=== PATIENT | male | born 1990 | race Caucasian/White ===

== ENCOUNTER 2017-12-15 17:58 | Inpatient (IN) | payer SELFPAY ==
[~2017-12-15] VITALS: Ht 165.1 cm; Wt 71.2 kg
[2017-12-15] MEDS ORDERED: SODIUM CHLORIDE 0.9% 1,000 ML IV ONE ×2 (21:59→22:45)
[2017-12-15 22:00] LABS: BASOPHILS % 1.3 % (0.0-2.0); EOSINOPHILS % 3.2 % (0.0-5.0); LYMPHOCYTES % 24.2 % (20.0-50.0); MEAN CORPUSCULAR HEMOGLOBIN 29.5 pg (28.0-32.0); MEAN CORPUSCULAR VOLUME 87.2 fL (80.0-94.0); MEAN PLATELET VOLUME 7.9 fl (7.4-10.4); MONOCYTES % 5.9 % (2.0-8.0); NEUTROPHILS % 65.4 % (40.0-76.0); PLATELET 201 x1000/uL (130-400); RED BLOOD CELL COUNT 2.34 mill/uL (4.7-6.1); RED CELL DISTRIBUTION WIDTH 13.8 % (11.6-14.6)
[2017-12-15] MEDS ORDERED: ONDANSETRON HCL 4MG/2ML VIAL IV ONE (22:00)
[2017-12-15 22:01] LABS: HEMATOCRIT. 20.4 % (42.0-52.0); HEMOGLOBIN. 6.9 g/dL (14.0-18.0)
[2017-12-15 22:04] LABS: CHLORIDE 110 mEq/L (98-107)
[2017-12-15 22:06] LABS: INR 1.1; PARTIAL THROMBOPLASTIN TIME 27.9 sec (23.4-31.0); PROTHROMBIN TIME 11.9 sec (9.4-11.6)
[2017-12-15] MEDS ORDERED: FUROSEMIDE 40MG/4ML VIAL IVP ONE (23:30)
[2017-12-16] VITALS (25 sets, daily range): BP systolic 153–223; BP diastolic 81–147
[2017-12-16] MEDS: CLONIDINE 0.1MG TABLET PO PRN ×3 (05:13→17:16)
[2017-12-16] MEDS ORDERED: NIFEDIPINE XL 30MG TAB PO SCH (09:00)
[2017-12-16 10:56] LABS: BASOPHILS % 1.8 % (0.0-2.0); EOSINOPHILS % 3.3 % (0.0-5.0); LYMPHOCYTES % 22.8 % (20.0-50.0); MEAN CORPUSCULAR HEMOGLOBIN 29.8 pg (28.0-32.0); MEAN CORPUSCULAR VOLUME 86.9 fL (80.0-94.0); MEAN PLATELET VOLUME 7.9 fl (7.4-10.4); MONOCYTES % 7.2 % (2.0-8.0); NEUTROPHILS % 64.9 % (40.0-76.0); PLATELET 169 x1000/uL (130-400); RED BLOOD CELL COUNT 1.97 mill/uL (4.7-6.1); RED CELL DISTRIBUTION WIDTH 13.7 % (11.6-14.6)
[2017-12-16 11:12] LABS: HEMATOCRIT. 17.1 % (42.0-52.0)
[2017-12-16 11:13] LABS: HEMOGLOBIN. 5.9 g/dL (14.0-18.0)
[2017-12-16] MEDS: HYDRALAZINE 20MG/ML VIAL IV PRN ×2 (11:51→17:47)
[2017-12-16 15:25] LABS: HEMATOCRIT 19.7 % (42.0-52.0); HEMOGLOBIN 6.7 g/dL (14.0-18.0)
[2017-12-16 16:06] LABS: CLARITY URINE CLEAR (CLEAR); COLOR URINE YELLOW (YELLOW); KETONES URINE NEGATIVE (NEGATIVE); LEUKOCYTE ESTERASE URINE NEGATIVE (NEGATIVE); NITRITE URINE NEGATIVE (NEGATIVE); OCCULT BLOOD URINE NEGATIVE (NEGATIVE); PROTEIN URINE 3+ (NEGATIVE); SPECIFIC GRAVITY URINE 1.013 (1.005-1.030); UROBILINOGEN URINE 0.2 E.U./dL (0.2-1.0)
[2017-12-16] MEDS: NIFEDIPINE XL 60MG TAB PO SCH ×2 (18:26→22:06)
[2017-12-16] MEDS ORDERED: HYDRALAZINE 20MG/ML VIAL IV PRN (18:30)
[2017-12-16] MEDS ORDERED: ACETAMINOPHEN 325MG TABLET PO PRN (18:45)
[2017-12-16 22:33] LABS: TOTAL IRON BINDING CAPACITY 196 ug/dL (250-450)
[2017-12-17] VITALS (12 sets, daily range): BP systolic 125–170; BP diastolic 67–98
[2017-12-17 06:46] LABS: BASOPHILS % 0.9 % (0.0-2.0); EOSINOPHILS % 4.7 % (0.0-5.0); HEMATOCRIT. 28.4 % (42.0-52.0); HEMOGLOBIN. 9.8 g/dL (14.0-18.0); LYMPHOCYTES % 22.7 % (20.0-50.0); MEAN PLATELET VOLUME 7.9 fl (7.4-10.4); NEUTROPHILS % 61.7 % (40.0-76.0); PLATELET 179 x1000/uL (130-400); RED BLOOD CELL COUNT 3.26 mill/uL (4.7-6.1)
[2017-12-17 07:06] LABS: HEPATITIS B SURFACE ANTIGEN NEGATIVE
[2017-12-17 07:34] LABS: HEPATITIS B CORE AB IGM NEGATIVE
[2017-12-17 07:36] LABS: HEPATITIS A AB IGM NEGATIVE (NEGATIVE)
[2017-12-17 08:34] LABS: PHOSPHORUS 6.4 mg/dL (2.5-4.9)
[2017-12-17] MEDS: NIFEDIPINE XL 60MG TAB PO SCH ×2 (08:36→20:51)
[2017-12-17] MEDS: HYDROCODONE/ACETAMINOPHEN 5/325MG TABLET PO PRN (08:37)
[2017-12-17] MEDS ORDERED: DOCUSATE SODIUM 250MG CAPSULE PO PRN (15:15)
[2017-12-18] VITALS (14 sets, daily range): BP systolic 142–179; BP diastolic 70–117
[2017-12-18 06:25] LABS: BASOPHILS % 1.1 % (0.0-2.0); EOSINOPHILS % 4.7 % (0.0-5.0); HEMATOCRIT. 27.8 % (42.0-52.0); HEMOGLOBIN. 9.7 g/dL (14.0-18.0); LYMPHOCYTES % 25.1 % (20.0-50.0); MEAN CORPUSCULAR HEMOGLOBIN 30.4 pg (28.0-32.0); MEAN PLATELET VOLUME 7.8 fl (7.4-10.4); MONOCYTES % 8.3 % (2.0-8.0); NEUTROPHILS % 60.8 % (40.0-76.0); PLATELET 172 x1000/uL (130-400); RED BLOOD CELL COUNT 3.19 mill/uL (4.7-6.1); RED CELL DISTRIBUTION WIDTH 13.7 % (11.6-14.6)
[2017-12-18] MEDS: NIFEDIPINE XL 60MG TAB PO SCH ×2 (08:39→20:18)
[2017-12-18] MEDS: CLONIDINE 0.1MG TABLET PO PRN ×2 (14:58→22:18)
[2017-12-19] VITALS (12 sets, daily range): BP systolic 111–150; BP diastolic 62–103
[2017-12-19 06:37] LABS: BASOPHILS % 1.1 % (0.0-2.0); EOSINOPHILS % 4.9 % (0.0-5.0); HEMATOCRIT. 28.3 % (42.0-52.0); HEMOGLOBIN. 9.8 g/dL (14.0-18.0); MEAN CORPUSCULAR HEMOGLOBIN 30.2 pg (28.0-32.0); MEAN CORPUSCULAR VOLUME 87.6 fL (80.0-94.0); MEAN PLATELET VOLUME 7.6 fl (7.4-10.4); MONOCYTES % 8.6 % (2.0-8.0); NEUTROPHILS % 55.4 % (40.0-76.0); PLATELET 181 x1000/uL (130-400); RED BLOOD CELL COUNT 3.23 mill/uL (4.7-6.1); RED CELL DISTRIBUTION WIDTH 14.1 % (11.6-14.6)
[2017-12-19] MEDS: NIFEDIPINE XL 60MG TAB PO SCH ×2 (09:00→20:42)
[2017-12-19] MEDS: LOSARTAN POTASSIUM 25 MG TABLET PO SCH ×2 (14:00→17:56)
[2017-12-19] MEDS: EPOETIN ALFA 10000UNITS/ML VIAL SUBCUT SCH (20:42)
[2017-12-20] VITALS (25 sets, daily range): BP systolic 132–156; BP diastolic 73–106
[2017-12-20] MEDS: HYDROCODONE/ACETAMINOPHEN 5/325MG TABLET PO PRN (01:58)
[2017-12-20 06:38] LABS: EOSINOPHILS % 4.9 % (0.0-5.0); HEMATOCRIT. 28.6 % (42.0-52.0); HEMOGLOBIN. 9.9 g/dL (14.0-18.0); LYMPHOCYTES % 28.8 % (20.0-50.0); MEAN CORPUSCULAR HEMOGLOBIN 29.9 pg (28.0-32.0); MEAN CORPUSCULAR VOLUME 86.6 fL (80.0-94.0); MEAN PLATELET VOLUME 7.6 fl (7.4-10.4); MONOCYTES % 8.5 % (2.0-8.0); NEUTROPHILS % 56.8 % (40.0-76.0); PLATELET 176 x1000/uL (130-400); RED CELL DISTRIBUTION WIDTH 13.8 % (11.6-14.6)
[2017-12-20] MEDS: LOSARTAN POTASSIUM 25 MG TABLET PO SCH (10:03)
[2017-12-20] MEDS: NIFEDIPINE XL 60MG TAB PO SCH ×2 (10:03→20:33)
[2017-12-20] MEDS ORDERED: ZOLPIDEM TARTRATE 5MG TABLET PO PRN (21:00)
[2017-12-21] VITALS (7 sets, daily range): BP systolic 122–144; BP diastolic 70–83
[2017-12-21 06:16] LABS: BASOPHILS % 1.3 % (0.0-2.0); EOSINOPHILS % 4.1 % (0.0-5.0); HEMATOCRIT. 29.7 % (42.0-52.0); HEMOGLOBIN. 10.2 g/dL (14.0-18.0); LYMPHOCYTES % 31.4 % (20.0-50.0); MEAN CORPUSCULAR HEMOGLOBIN 30.1 pg (28.0-32.0); MEAN CORPUSCULAR VOLUME 87.4 fL (80.0-94.0); MEAN PLATELET VOLUME 7.5 fl (7.4-10.4); MONOCYTES % 9.8 % (2.0-8.0); NEUTROPHILS % 53.4 % (40.0-76.0); PLATELET 177 x1000/uL (130-400); RED CELL DISTRIBUTION WIDTH 13.7 % (11.6-14.6)
[2017-12-21] MEDS: NIFEDIPINE XL 60MG TAB PO SCH ×2 (09:34→21:01)
[2017-12-21] MEDS: LOSARTAN POTASSIUM 25 MG TABLET PO SCH (09:35)
[2017-12-22 07:15] LABS: BASOPHILS % 1.1 % (0.0-2.0); EOSINOPHILS % 4.1 % (0.0-5.0); HEMATOCRIT. 28.3 % (42.0-52.0); HEMOGLOBIN. 9.6 g/dL (14.0-18.0); LYMPHOCYTES % 30.5 % (20.0-50.0); MEAN CORPUSCULAR HEMOGLOBIN 29.4 pg (28.0-32.0); MEAN CORPUSCULAR VOLUME 86.9 fL (80.0-94.0); MEAN PLATELET VOLUME 7.8 fl (7.4-10.4); MONOCYTES % 9.2 % (2.0-8.0); NEUTROPHILS % 55.1 % (40.0-76.0); PLATELET 171 x1000/uL (130-400); RED BLOOD CELL COUNT 3.26 mill/uL (4.7-6.1); RED CELL DISTRIBUTION WIDTH 13.6 % (11.6-14.6)
[2017-12-22 08:00] VITALS: BP 136/79
[2017-12-22] MEDS: LOSARTAN POTASSIUM 25 MG TABLET PO SCH (09:05)
[2017-12-22] MEDS: NIFEDIPINE XL 60MG TAB PO SCH ×2 (09:05→21:15)
[2017-12-22 12:00] VITALS: BP 138/75
[2017-12-22 16:00] VITALS: BP 125/64
[2017-12-22 20:00] VITALS: BP 145/91
[2017-12-22] MEDS: EPOETIN ALFA 10000UNITS/ML VIAL SUBCUT SCH (21:15)
[2017-12-22 22:00] VITALS: BP 162/110
[2017-12-23] VITALS (7 sets, daily range): BP systolic 130–170; BP diastolic 75–98
[2017-12-23 07:21] LABS: BASOPHILS % 1.2 % (0.0-2.0); EOSINOPHILS % 3.8 % (0.0-5.0); HEMATOCRIT. 28.4 % (42.0-52.0); HEMOGLOBIN. 9.9 g/dL (14.0-18.0); LYMPHOCYTES % 29.5 % (20.0-50.0); MEAN CORPUSCULAR HEMOGLOBIN 30.4 pg (28.0-32.0); MEAN PLATELET VOLUME 7.6 fl (7.4-10.4); NEUTROPHILS % 55.5 % (40.0-76.0); PLATELET 187 x1000/uL (130-400); RED BLOOD CELL COUNT 3.26 mill/uL (4.7-6.1); RED CELL DISTRIBUTION WIDTH 13.5 % (11.6-14.6)
[2017-12-23] MEDS: LOSARTAN POTASSIUM 25 MG TABLET PO SCH ×2 (09:00→14:57)
[2017-12-23] MEDS: NIFEDIPINE XL 60MG TAB PO SCH ×2 (09:00→14:57)
[2017-12-23] MEDS ORDERED: NIFE60TA64 PO (13:20)
[2017-12-23] MEDS ORDERED: LOSA25TA3 PO (13:20)
== END 2017-12-23 15:57 | disposition home or self-care (01) | DRG 466 ==
LOC: ER 17:58 → 5EST 22:45 → ENRESERV 12-16 01:53 → 5EST 12-16 08:57
PROVIDERS: ADMIT Internal Medicine; ATTEND Internal Medicine
PROC: 30233N1 Transfusion of Nonautologous Red Blood Cells into Peripheral Vein, Percutaneous Approach (ICD-10-PCS; principal; 2017-12-16)
PROC: 5A1D70Z Performance of Urinary Filtration, Intermittent, Less than 6 Hours Per Day (ICD-10-PCS; 2017-12-16)
PROC: 5A1D70Z Performance of Urinary Filtration, Intermittent, Less than 6 Hours Per Day (ICD-10-PCS; 2017-12-17)
PROC: 5A1D70Z Performance of Urinary Filtration, Intermittent, Less than 6 Hours Per Day (ICD-10-PCS; 2017-12-18)
PROC: 5A1D70Z Performance of Urinary Filtration, Intermittent, Less than 6 Hours Per Day (ICD-10-PCS; 2017-12-19)
PROC: 5A1D70Z Performance of Urinary Filtration, Intermittent, Less than 6 Hours Per Day (ICD-10-PCS; 2017-12-21)
PROC: 5A1D70Z Performance of Urinary Filtration, Intermittent, Less than 6 Hours Per Day (ICD-10-PCS; 2017-12-22)
DX: T86.11 Kidney transplant rejection (principal); E87.2 Acidosis; N17.9 Acute kidney failure, unspecified; I12.0 Hypertensive chronic kidney disease with stage 5 chronic kidney disease or end stage renal disease; E44.1 Mild protein-calorie malnutrition; Y83.8 Other surgical procedures as the cause of abnormal reaction of the patient, or of later complication, without mention of misadventure at the time of the procedure; D64.9 Anemia, unspecified; E87.70 Fluid overload, unspecified; K59.00 Constipation, unspecified; N18.6 End stage renal disease; Z91.19 Patient's noncompliance with other medical treatment and regimen; Z94.0 Kidney transplant status; Z99.2 Dependence on renal dialysis; Z79.899 Other long term (current) drug therapy
CPT/HCPCS: 36415; 71045; 76770; 80048; 80053; 81003; 82270; 83540; 83550; 83690; 83735; 83880; 84100; 84484; 85014; 85018; 85025; 85044; 85610; 85730; 86705; 86709; 86803; 86850; 86900; 86920; 87340; 93970; 96361; 96374; 96375; 99291; J0360; J0885; J1940; J2405; J7030; J7050; P9016

== ENCOUNTER 2018-04-19 10:06 | Inpatient (IN) | payer OTHER, MEDICAID ==
[~2018-04-19] VITALS: Ht 165.1 cm; Wt 34.5 kg
[~2018-04-19 10:06] MED LIST: LOSA25TA3 PO; NIFE60TA64 PO
[2018-04-19 12:50] LABS: BASOPHILS % 1.3 % (0.0-2.0); EOSINOPHILS % 2.9 % (0.0-5.0); HEMATOCRIT. 33.2 % (42.0-52.0); HEMOGLOBIN. 11.4 g/dL (14.0-18.0); LYMPHOCYTES % 27.5 % (20.0-50.0); MEAN CORPUSCULAR HEMOGLOBIN 31.7 pg (28.0-32.0); MEAN PLATELET VOLUME 8.6 fl (7.4-10.4); MONOCYTES % 5.6 % (2.0-8.0); NEUTROPHILS % 62.7 % (40.0-76.0); PLATELET 243 x1000/uL (130-400); RED BLOOD CELL COUNT 3.61 mill/uL (4.7-6.1); RED CELL DISTRIBUTION WIDTH 14.7 % (11.6-14.6)
[2018-04-19 13:00] LABS: CHLORIDE 100 mEq/L (98-107)
[2018-04-19 13:01] LABS: INR 1.1; PROTHROMBIN TIME 11.1 sec (9.1-11.1)
[2018-04-19] MEDS ORDERED: SODIUM POLYSTYRENE SULFONATE 15 G/60 ML BOT PO ONE (13:15)
[2018-04-19 15:00] LABS: PHOSPHORUS 8.6 mg/dL (2.5-4.9)
[2018-04-19] MEDS ORDERED: HYDROCODONE/ACETAMINOPHEN 5/325MG TABLET PO PRN (16:30)
[2018-04-19] MEDS ORDERED: ONDANSETRON HCL 4MG/2ML INJ IV PRN (16:30)
[2018-04-19] MEDS ORDERED: IPRATROPIUM/ALBUTEROL 0.5-3(2.5)MG/3ML NEB INH PRN (16:30)
[2018-04-19] MEDS ORDERED: ACETAMINOPHEN 325MG TABLET PO PRN (16:30)
[2018-04-19] MEDS ORDERED: DOCUSATE SODIUM 100MG CAPSULE PO PRN (16:30)
[2018-04-19] MEDS ORDERED: CLONIDINE 0.1MG TABLET PO PRN (16:30)
[2018-04-19 22:00] VITALS: BP 170/98
[2018-04-19] MEDS ORDERED: ACET-2178 PO (22:34)
[2018-04-19] MEDS ORDERED: SEVE800T8 PO (22:34)
[2018-04-20] VITALS (32 sets, daily range): BP systolic 120–169; BP diastolic 68–107
[2018-04-20 00:11] LABS: CREATINE KINASE 96 IU/L (39-308)
[2018-04-20 00:14] LABS: CREATINE KINASE MB FRACTION < 1.0 ng/mL (0.5-3.6)
[2018-04-20 07:41] LABS: CLARITY URINE CLEAR (CLEAR); COLOR URINE YELLOW (YELLOW); KETONES URINE NEGATIVE (NEGATIVE); LEUKOCYTE ESTERASE URINE NEGATIVE (NEGATIVE); NITRITE URINE NEGATIVE (NEGATIVE); OCCULT BLOOD URINE TRACE (NEGATIVE); PH URINE 6.5 (4.5-8.0); PROTEIN URINE 2+ (NEGATIVE); SPECIFIC GRAVITY URINE 1.011 (1.005-1.030); UROBILINOGEN URINE 0.2 E.U./dL (0.2-1.0)
[2018-04-20 08:37] LABS: BASOPHILS % 1.4 % (0.0-2.0); EOSINOPHILS % 4.1 % (0.0-5.0); HEMATOCRIT. 30.4 % (42.0-52.0); HEMOGLOBIN. 10.5 g/dL (14.0-18.0); LYMPHOCYTES % 30.9 % (20.0-50.0); MEAN CORPUSCULAR HEMOGLOBIN 31.9 pg (28.0-32.0); MEAN CORPUSCULAR VOLUME 92.4 fL (80.0-94.0); MONOCYTES % 8.1 % (2.0-8.0); NEUTROPHILS % 55.5 % (40.0-76.0); PLATELET 211 x1000/uL (130-400); RED BLOOD CELL COUNT 3.29 mill/uL (4.7-6.1); RED CELL DISTRIBUTION WIDTH 14.1 % (11.6-14.6)
[2018-04-20 08:43] LABS: LDL CHOLESTEROL 74 mg/dL (5-100)
[2018-04-20 08:45] LABS: CREATINE KINASE 82 IU/L (39-308)
[2018-04-20] MEDS ORDERED: CEFAZOLIN 1000MG PREMIX 50 ML IV NR (08:45)
[2018-04-20 08:46] LABS: HDL CHOLESTEROL 31 mg/dL (40-59)
[2018-04-20 08:47] LABS: CREATINE KINASE MB FRACTION < 1.0 ng/mL (0.5-3.6)
[2018-04-20] MEDS ORDERED: CEFAZOLIN 1000MG PREMIX 50 ML IV ONE (08:49)
[2018-04-20] MEDS ORDERED: LIDOCAINE HCL 1% 20ML VIAL (Pyxis) INJ ONE ×2 (08:50→10:52)
[2018-04-20] MEDS ORDERED: FENTANYL CITRATE/PF 50MCG/ML 2ML VIAL ONE ×2 (08:50→09:58)
[2018-04-20] MEDS ORDERED: SODIUM BICARBONATE 4% (2.4MEQ) 5ML VIAL IV ONE (08:50)
[2018-04-20] MEDS ORDERED: HEPARIN 1000 UNITS/ML 10ML ONE (08:50)
[2018-04-20] MEDS ORDERED: IOHEXOL-300 100 ML BOTTLE ONE (09:07)
[2018-04-20 09:27] LABS: *AMPHETAMINES SCREEN URINE NEGATIVE (NEGATIVE)
[2018-04-20 09:28] LABS: *BARBITURATES SCREEN URINE NEGATIVE (NEGATIVE); *BENZODIAZEPINES SCREEN URINE NEGATIVE (NEGATIVE); *COCAINE SCREEN URINE NEGATIVE (NEGATIVE); METHADONE URINE SCREEN NEGATIVE (NEGATIVE); OPIATES URINE SCREEN NEGATIVE (NEGATIVE); PHENCYCLIDINE URINE SCREEN NEGATIVE (NEGATIVE)
[2018-04-20 09:29] LABS: CANNABINOID URINE SCREEN NEGATIVE (NEGATIVE)
[2018-04-20] MEDS ORDERED: MIDAZOLAM HCL 2 MG/2 ML VIAL ONE (09:51)
[2018-04-20] MEDS ORDERED: MIDAZOLAM HCL 5 MG/5 ML VIAL IV ONE (10:15)
[2018-04-20] MEDS ORDERED: HEPARIN 5000 UNITS/ML VIAL IV ONE (10:15)
[2018-04-20] MEDS ORDERED: MIDAZOLAM HCL 2 MG/2 ML VIAL IV NR (10:15)
[2018-04-20] MEDS ORDERED: HEPARIN 5000 UNITS/ML VIAL IV NR (10:30)
[2018-04-20] MEDS ORDERED: FENTANYL CITRATE/PF 50MCG/ML 2ML VIAL IV ONE (11:30)
[2018-04-20] MEDS: SEVELAMER CARBONATE 800 MG TABLET PO SCH (17:37)
[2018-04-20] MEDS: FOLIC ACID/VITAMIN B COMP W-C TABLET PO SCH (17:37)
[2018-04-20] MEDS: AMLODIPINE 5MG TABLET PO SCH (22:48)
[2018-04-21] VITALS: BP 122/76
[2018-04-21 04:00] VITALS: BP 125/74
[2018-04-21 05:41] LABS: BASOPHILS % 0.9 % (0.0-2.0); EOSINOPHILS % 3.4 % (0.0-5.0); HEMATOCRIT. 30.2 % (42.0-52.0); HEMOGLOBIN. 10.6 g/dL (14.0-18.0); LYMPHOCYTES % 28.2 % (20.0-50.0); MEAN CORPUSCULAR HEMOGLOBIN 32.2 pg (28.0-32.0); MEAN CORPUSCULAR VOLUME 91.5 fL (80.0-94.0); MEAN PLATELET VOLUME 8.4 fl (7.4-10.4); MONOCYTES % 8.6 % (2.0-8.0); NEUTROPHILS % 58.9 % (40.0-76.0); PLATELET 215 x1000/uL (130-400); RED CELL DISTRIBUTION WIDTH 14.2 % (11.6-14.6)
[2018-04-21 08:00] VITALS: BP 126/77
[2018-04-21] MEDS: FOLIC ACID/VITAMIN B COMP W-C TABLET PO SCH (08:29)
[2018-04-21] MEDS: SEVELAMER CARBONATE 800 MG TABLET PO SCH ×2 (08:30→12:50)
[2018-04-21] MEDS: AMLODIPINE 5MG TABLET PO SCH ×2 (08:30→21:47)
[2018-04-21] MEDS ORDERED: SODIUM CHLORIDE 0.9% 1,000 ML IV NR (10:05)
[2018-04-21] MEDS ORDERED: ONDANSETRON HCL 4MG/2ML INJ IV PRN (10:15)
[2018-04-21] MEDS ORDERED: HYDROMORPHONE HCL/PF 2MG/ML CPJ IV PRN (10:15)
[2018-04-21] MEDS ORDERED: MEPERIDINE HCL/PF 25MG/ML CPJ IV PRN (10:15)
[2018-04-21 14:10] VITALS: BP 114/71
[2018-04-21 16:00] VITALS: BP 128/67
[2018-04-21 20:00] VITALS: BP 145/94
[2018-04-21] MEDS: HYDROCODONE/ACETAMINOPHEN 5/325MG TABLET PO PRN (22:47)
[2018-04-22 00:51] VITALS: BP 145/91
[2018-04-22] MEDS: MORPHINE SULFATE 10MG/5ML ORAL SOLN UDC PO PRN ×2 (00:51→14:24)
[2018-04-22 04:00] VITALS: BP 127/76
[2018-04-22 06:27] LABS: BASOPHILS % 0.5 % (0.0-2.0); EOSINOPHILS % 4.2 % (0.0-5.0); HEMATOCRIT. 27.3 % (42.0-52.0); HEMOGLOBIN. 9.7 g/dL (14.0-18.0); LYMPHOCYTES % 26.9 % (20.0-50.0); MEAN CORPUSCULAR HEMOGLOBIN 32.7 pg (28.0-32.0); MEAN CORPUSCULAR VOLUME 91.7 fL (80.0-94.0); MEAN PLATELET VOLUME 8.9 fl (7.4-10.4); MONOCYTES % 10.5 % (2.0-8.0); NEUTROPHILS % 57.9 % (40.0-76.0); PLATELET 189 x1000/uL (130-400); RED BLOOD CELL COUNT 2.98 mill/uL (4.7-6.1); RED CELL DISTRIBUTION WIDTH 14.3 % (11.6-14.6)
[2018-04-22 08:12] VITALS: BP 145/88
[2018-04-22] MEDS: AMLODIPINE 5MG TABLET PO SCH ×2 (08:15→21:00)
[2018-04-22] MEDS: HYDROCODONE/ACETAMINOPHEN 5/325MG TABLET PO PRN (08:32)
[2018-04-22] MEDS: SEVELAMER CARBONATE 800 MG TABLET PO SCH ×3 (08:32→16:36)
[2018-04-22] MEDS: FOLIC ACID/VITAMIN B COMP W-C TABLET PO SCH (08:32)
[2018-04-22] MEDS ORDERED: AMLO5TAB88 PO (10:12)
[2018-04-22] MEDS ORDERED: NEPVIT PO (10:12)
[2018-04-22 12:00] VITALS: BP 134/89
[2018-04-22 15:58] VITALS: BP_SYST 134; BP_SYST 160; BP_DIAS 106; BP_DIAS 89
[2018-04-22] MEDS ORDERED: HEPARIN SODIUM 1,000 UNIT/1ML VIAL IV ONE (16:45)
[2018-04-22 20:00] VITALS: BP 141/84
[2018-04-23] VITALS: BP 147/94
[2018-04-23] MEDS: HYDROCODONE/ACETAMINOPHEN 5/325MG TABLET PO PRN (00:07)
[2018-04-23 04:00] VITALS: BP 128/74
[2018-04-23] MEDS: SEVELAMER CARBONATE 800 MG TABLET PO SCH (07:50)
[2018-04-23] MEDS: FOLIC ACID/VITAMIN B COMP W-C TABLET PO SCH (09:00)
[2018-04-23] MEDS: AMLODIPINE 5MG TABLET PO SCH (09:00)
[2018-04-23 10:03] VITALS: BP 126/79
== END 2018-04-23 10:51 | disposition home or self-care (01) | DRG 182 ==
LOC: ER 10:06 → EDBEDREQ 12:05 → 6WST 13:09 → EDBEDREQ 13:18 → EDBEDREQTM 13:18 → ENRESERV 20:09
PROVIDERS: ADMIT Internal Medicine; ATTEND Internal Medicine
PROC: 5A1D70Z Performance of Urinary Filtration, Intermittent, Less than 6 Hours Per Day (ICD-10-PCS; 2018-04-19)
PROC: 057Y3ZZ Dilation of Upper Vein, Percutaneous Approach (ICD-10-PCS; 2018-04-20)
PROC: 02HV33Z Insertion of Infusion Device into Superior Vena Cava, Percutaneous Approach (ICD-10-PCS; 2018-04-21)
PROC: B548ZZA Ultrasonography of Superior Vena Cava, Guidance (ICD-10-PCS; 2018-04-21)
PROC: 03CY0ZZ Extirpation of Matter from Upper Artery, Open Approach (ICD-10-PCS; 2018-04-21)
PROC: 031C0JF Bypass Left Radial Artery to Lower Arm Vein with Synthetic Substitute, Open Approach (ICD-10-PCS; 2018-04-21)
PROC: B5181ZA Fluoroscopy of Superior Vena Cava using Low Osmolar Contrast, Guidance (ICD-10-PCS; 2018-04-21)
PROC: 0JH63XZ Insertion of Tunneled Vascular Access Device into Chest Subcutaneous Tissue and Fascia, Percutaneous Approach (ICD-10-PCS; principal; 2018-04-21 09:30)
DX: T82.868A Thrombosis due to vascular prosthetic devices, implants and grafts, initial encounter (principal); E87.5 Hyperkalemia; I12.0 Hypertensive chronic kidney disease with stage 5 chronic kidney disease or end stage renal disease; T82.318A Breakdown (mechanical) of other vascular grafts, initial encounter; N18.6 End stage renal disease; D63.8 Anemia in other chronic diseases classified elsewhere; Y71.2 Prosthetic and other implants, materials and accessory cardiovascular devices associated with adverse incidents; Y83.2 Surgical operation with anastomosis, bypass or graft as the cause of abnormal reaction of the patient, or of later complication, without mention of misadventure at the time of the procedure; Z99.2 Dependence on renal dialysis; T82.898A Other specified complication of vascular prosthetic devices, implants and grafts, initial encounter
CPT/HCPCS: 36415; 36558; 36902; 71045; 76937; 77001; 80048; 80061; 80305; 82550; 82553; 83880; 84100; 84443; 84484; 93922; 93970; 93971; 99152; 99153; 99285; C1725; C1750; C1766; C1768; C1769; C1887; J0690; J1642; J1644; J2175; J2250; J2405; J3010; J3490; J7030; J7050; Q9967; G0500

== ENCOUNTER 2018-06-19 08:26 | Emergency (ER) | payer MEDICAID ==
[~2018-06-19] VITALS: Ht 152.4 cm; Wt 71.0 kg
[~2018-06-19 08:26] MED LIST changes: +ACET-2178 PO; +AMLO5TAB88 PO; -LOSA25TA3 PO; +NEPVIT PO; -NIFE60TA64 PO; +SEVE800T8 PO
[2018-06-19] MEDS ORDERED: DEXTROSE 50% WATER 50ML SYRINGE IV ONE (13:20)
[2018-06-19] MEDS ORDERED: LIDOCAINE HCL 1% 20ML VIAL (Pyxis) INJ ONE (14:47)
[2018-06-19] MEDS ORDERED: SODIUM BICARBONATE 4% (2.4MEQ) 5ML VIAL IV ONE (14:47)
[2018-06-19 15:03] LABS: BASOPHILS % 1.2 % (0.0-2.0); EOSINOPHILS % 2.3 % (0.0-5.0); HEMATOCRIT. 37.8 % (42.0-52.0); HEMOGLOBIN. 12.9 g/dL (14.0-18.0); LYMPHOCYTES % 26.1 % (20.0-50.0); MEAN CORPUSCULAR HEMOGLOBIN 31.6 pg (28.0-32.0); MEAN CORPUSCULAR VOLUME 92.8 fL (80.0-94.0); MEAN PLATELET VOLUME 9.2 fl (7.4-10.4); MONOCYTES % 7.1 % (2.0-8.0); NEUTROPHILS % 63.3 % (40.0-76.0); PLATELET 202 x1000/uL (130-400); RED BLOOD CELL COUNT 4.07 mill/uL (4.7-6.1); RED CELL DISTRIBUTION WIDTH 14.3 % (11.6-14.6)
[2018-06-19 15:08] LABS: CHLORIDE 102 mEq/L (98-107)
[2018-06-19 15:20] VITALS: BP 147/94
== END 2018-06-19 15:40 | disposition home or self-care (01) ==
LOC: ER 08:46
DX: T85.9XXA Unspecified complication of internal prosthetic device, implant and graft, initial encounter (principal); X58.XXXA Exposure to other specified factors, initial encounter; I12.0 Hypertensive chronic kidney disease with stage 5 chronic kidney disease or end stage renal disease; N18.6 End stage renal disease; Z99.2 Dependence on renal dialysis; Z94.0 Kidney transplant status; Z98.890 Other specified postprocedural states; Z79.899 Other long term (current) drug therapy
CPT/HCPCS: 36415; 36589; 71045; 80053; 85025; 93005; 99284; J3490; Z7610

== ENCOUNTER 2022-05-22 09:34 | Emergency (ER) | payer MEDICAID ==
[~2022-05-22] VITALS: Ht 165.1 cm; Wt 69.0 kg
[~2022-05-22 09:34] MED LIST changes: -ACET-2178 PO; +TOPUD PO
[2022-05-22 09:45] VITALS: BP 153/92
[2022-05-22] MEDS ORDERED: NAPR-677 MT (12:27)
== END 2022-05-22 12:48 | disposition home or self-care (01) ==
LOC: ER 09:34
DX: M25.561 Pain in right knee (principal); G89.29 Other chronic pain; I12.0 Hypertensive chronic kidney disease with stage 5 chronic kidney disease or end stage renal disease; N18.6 End stage renal disease; Z99.2 Dependence on renal dialysis; Z98.890 Other specified postprocedural states
CPT/HCPCS: 29505; 99283

== ENCOUNTER 2022-07-29 01:53 | Emergency (ER) | payer MEDICAID ==
[~2022-07-29] VITALS: Ht 165.1 cm; Wt 68.0 kg
[~2022-07-29 01:53] MED LIST changes: +NAPR-677 MT
[2022-07-29] MEDS ORDERED: KETOROLAC 60MG/2ML VIAL IM STA (03:20)
[2022-07-29] MEDS ORDERED: HYDR-4001 MT (05:41)
[2022-07-29 06:28] VITALS: BP 165/90
== END 2022-07-29 06:41 | disposition home or self-care (01) ==
LOC: ER 01:53
DX: S76.112A Strain of left quadriceps muscle, fascia and tendon, initial encounter (principal); N18.6 End stage renal disease; Z99.2 Dependence on renal dialysis; Z94.0 Kidney transplant status; W01.0XXA Fall on same level from slipping, tripping and stumbling without subsequent striking against object, initial encounter; Y93.89 Activity, other specified; Y92.018 Other place in single-family (private) house as the place of occurrence of the external cause
CPT/HCPCS: 73562; 96372; 99283; J1885; Z7610